=== PATIENT | female | born 1995 | race American Indian/Alaskan Native ===

== ENCOUNTER 2019-09-19 21:06 | Emergency (ER) | payer SELFPAY ==
[2019-09-19 21:40] VITALS: BP 145/91
--- NOTE | 2019-09-19 22:26 | XRay Report ---
CHEST 2 VIEWS INDICATION / CLINICAL INFORMATION: cough. COMPARISON: None available. FINDINGS: SUPPORT DEVICES: None. HEART / MEDIASTINUM: No significant abnormality. LUNGS / PLEURA: No significant pulmonary or pleural abnormality. No pneumothorax. ADDITIONAL FINDINGS: Bilateral nipple piercings. IMPRESSION: 1. No acute findings. Signer Name: Austen Lagunas MD Signed: 09/19/2019 10:21 PM Workstation Name: [id number]
== END 2019-09-20 00:56 | disposition left against medical advice (07) ==
LOC: ED 21:06
DX: R42 Dizziness and giddiness (principal); Z53.21 Procedure and treatment not carried out due to patient leaving prior to being seen by health care provider
CPT/HCPCS: 71046